=== PATIENT | female | born 1995 | race Caucasian/White ===

== ENCOUNTER 2016-07-11 16:13 | Emergency (ER) | payer OTHER ==
[2016-07-11 16:18] VITALS: BP 122/66
[2016-07-11 16:52] LABS: BILIRUBIN,URINE NEGATIVE (NEGATIVE)
[2016-07-11 16:56] LABS: HCG UR QUAL NEGATIVE; UA w/ MICROSCOPIC CHARGE YES
--- NOTE | 2016-07-11 16:59 | ED Physician Documentation ---
PD HPI FEMALE - Stated complaint Stated Complaint: FEMALE - Chief complaint Chief Complaint: General - History obtained from History obtained from: Patient - History of Present Illness Timing - onset: How many days ago (5) Timing - duration: Days (5) Timing - details: Gradual onset, Still present, Waxing and waning Associated symptoms: Dysuria, Urinary frequency, Other (vaginal itching) Contributing factors: No: Similar symptoms before: Diagnosis (UTI and yeast infection) Recently seen: Not recently seen - Additional information Additional information: 20 y/o female with urinary symptoms for the past 5 days feels itching as well. Review of Systems Constitutional: denies: Fever, Chills, Myalgias Eyes: denies: Decreased vision Ears: denies: Ear pain Nose: denies: Congestion Throat: denies: Sore throat Cardiac: denies: Chest pain / pressure, Palpitations Respiratory: denies: Dyspnea, Cough GI: reports: Nausea. denies: Abdominal Pain, Vomiting, Constipation, Diarrhea : reports: Dysuria, Frequency Skin: denies: Rash Musculoskeletal: denies: Neck pain, Back pain, Extremity pain Neurologic: denies: Generalized weakness, Focal weakness, Numbness PD PAST MEDICAL HISTORY - Present Medications Home Medications: Ambulatory Orders Medication Instructions Recorded Confirmed Sulfamethoxazole/Trimethoprim 1 each PO BID #6 tablet 07/11/16 [Sulfamethoxazole-Tmp Ds Tablet] - Allergies Allergies/Adverse Reactions: Allergies Allergy/AdvReac Type Severity Reaction Status Date / Time No Known Drug Allergies Allergy Verified 07/11/16 16:17 PD ED PE NORMAL - Vitals Vital signs reviewed: Yes (normal ) - General General: Alert and oriented X 3, No acute distress, Well developed/nourished - HEENT HEENT: Atraumatic, PERRL, EOMI - Respiratory Respiratory: No respiratory distress - Back Back: No CVA TTP, No spinal TTP - Derm Derm: Normal color, Warm and dry, No rash - Extremities Extremities: No deformity, No edema - Neuro Neuro: No motor deficit, No sensory deficit - Psych Psych: Normal mood, Normal affect Results - Vitals Vitals: Vital Signs - 24 hr 07/11/16 16:16 Temperature 37.2 C Heart Rate 71 Respiratory 20 Rate Blood Pressure 122/66 O2 Saturation 100 Oxygen O2 Source Room air - Labs Labs: Laboratory Tests 07/11/16 16:38 Urine Color YELLOW Urine Clarity CLEAR Urine pH 6.0 Ur Specific [place] 1.010 Urine Protein NEGATIVE Urine Glucose (UA) NEGATIVE Urine Ketones NEGATIVE Urine Occult Blood TRACE-INTA Urine Nitrite NEGATIVE Urine Bilirubin NEGATIVE Urine Urobilinogen 0.2 (NORMAL) Ur Leukocyte Esterase TRACE H Urine RBC 6-10 H Urine WBC 4-5 Ur Squamous Epith Cells NONE SEEN Amorphous Sediment Rare Urine Bacteria None Seen Ur Microscopic Review INDICATED Urine Culture Comments INDICATED Urine HCG, Qual NEGATIVE PD MEDICAL DECISION MAKING - ED course Complexity details: considered differential, d/w patient, d/w family ED course: 20 y/o female with urinary symptoms and itching has an equivocal urine specimen. I have instructed her to treat for yeast and we will provide treatment for UTI. Departure - Departure Disposition: Home, Self Care Clinical Impression: Urinary tract infection Qualifiers: Urinary tract infection type: acute cystitis Hematuria presence: with hematuria Qualified Code(s): N30.01 - Acute cystitis with hematuria Instructions: ED UTI Cystitis Female Follow-Up: [facility] [Provider Group] Prescriptions: Sulfamethoxazole/Trimethoprim [Sulfamethoxazole-Tmp Ds Tablet] 1 each PO BID #6 tablet
[2016-07-11 17:24] LABS: UR CULTURE IF IND INDICATED
== END 2016-07-11 17:39 | disposition home or self-care (01) ==
LOC: ED 16:13
DX: N30.01 Acute cystitis with hematuria (principal)
CPT/HCPCS: 81001; 81003; 81025; 87086; 99283

== ENCOUNTER 2016-09-11 16:33 | Emergency (ER) | payer OTHER ==
[2016-09-11] MEDS ORDERED: BENZOCAINE/MENTHOL LOZENGE MM STA (16:52)
[2016-09-11] MEDS ORDERED: DEXAMETHASONE 10 MG/ML VIAL PO STA (16:52)
[2016-09-11] MEDS ORDERED: CHERRY SYRUP 10 ML UDC PO ONE (16:56)
[2016-09-11] MEDS ORDERED: BENZOCAINE/MENTHOL LOZENGE MM ONE (16:56)
[2016-09-11] MEDS ORDERED: DEXAMETHASONE 10 MG/ML VIAL ONE (16:57)
== END 2016-09-11 18:02 | disposition home or self-care (01) ==
DX: J02.9 Acute pharyngitis, unspecified (principal); F17.200 Nicotine dependence, unspecified, uncomplicated
CPT/HCPCS: 86308; 87070; 87430; 99283; A9270

== ENCOUNTER 2017-02-02 19:08 | Emergency (ER) | payer OTHER ==
[2017-02-02 19:51] LABS: RAPID STREP SCREEN REAGENT QC YELLOW (YELLOW)
--- NOTE | 2017-02-02 22:11 | ED Physician Documentation ---
History of Present Illness - Stated complaint Stated Complaint: SORE THROAT - Chief complaint Chief Complaint: Heent - Additonal information Additional information: hx from pt 21 y/o f hx strep throat sore throat DAVIDSON body aches X 24 hr no cough NVD Review of Systems Constitutional: reports: Chills, Myalgias Throat: reports: Sore throat Respiratory: denies: Cough GI: denies: Abdominal Pain : denies: Now EGA (denies) Skin: denies: Rash PD PAST MEDICAL HISTORY - Present Medications Home Medications: Ambulatory Orders Medication Instructions Recorded Confirmed Penicillin Vk 500 mg PO Q8H 10 Days 02/02/17 - Allergies Allergies/Adverse Reactions: Allergies Allergy/AdvReac Type Severity Reaction Status Date / Time No Known Drug Allergies Allergy Verified 02/02/17 19:23 - Social History Does the pt smoke?: Yes Smoking Status: Current every day smoker - Immunizations Immunizations are current?: Yes PD ED PE NORMAL - Vitals Vital signs reviewed: Yes - HEENT HEENT: Ears normal, Moist mucous membranes. No: Pharynx benign (enlarged tonsils with exudate bilaterally) - Neck Neck: No: No adenopathy (anterior no posterior) - Cardiac Cardiac: RRR - Respiratory Respiratory: No respiratory distress, Clear bilaterally - Abdomen Abdomen: Soft, Non tender, No organomegaly - Derm Derm: Normal color - Neuro Neuro: Alert and oriented X 3 Results - Vitals Vitals: Vital Signs - 24 hr 02/02/17 02/02/17 19:21 21:12 Temperature 37.2 C 37.4 C Heart Rate 109 H 95 Respiratory 18 18 Rate Blood Pressure 127/74 114/60 O2 Saturation 100 98 Oxygen O2 Source Room air - Labs Labs: Laboratory Tests 02/02/17 19:23 Group A Strep Rapid Negative PD MEDICAL DECISION MAKING - ED course ED course: hx strep and meets all centor criteria Departure - Departure Disposition: 01 Home, Self Care Clinical Impression: Strep pharyngitis Condition: Good Instructions: ED Strep Pharyngitis Poss Prescriptions: Penicillin Vk 500 mg PO Q8H 10 Days Forms: Activity restrictions
[2017-02-02] MEDS ORDERED: PENICILLIN VK 250 MG TABLET PO ONE (22:23)
[2017-02-02] MEDS: PENICILLIN VK 250 MG TABLET PO STA (22:24)
[2017-02-02 22:26] VITALS: BP 115/63
== END 2017-02-02 22:25 | disposition home or self-care (01) ==
LOC: ED 19:08
DX: J02.0 Streptococcal pharyngitis (principal); F17.200 Nicotine dependence, unspecified, uncomplicated
CPT/HCPCS: 87070; 87430; 99283; A9270

== ENCOUNTER 2017-02-10 18:27 | Emergency (ER) | payer OTHER ==
[2017-02-10 18:43] VITALS: BP 137/88
== END 2017-02-10 19:31 | disposition left against medical advice (07) ==
LOC: ED 18:27
DX: Z53.21 Procedure and treatment not carried out due to patient leaving prior to being seen by health care provider (principal)

== ENCOUNTER 2018-08-11 20:54 | Emergency (ER) | payer OTHER ==
[2018-08-11] MEDS ORDERED: IBUPROFEN 800 MG TABLET PO STA (21:05)
--- NOTE | 2018-08-11 21:06 | ED Physician Documentation ---
PD HPI URI - Stated complaint Stated Complaint: SWOLLEN THROAT/BODY ACHES - Chief complaint Chief Complaint: Heent - History obtained from History obtained from: Patient - History of Present Illness Timing - onset: Yesterday (Sore throat with body aches and low back pain as well as fever and swollen lymph nodes since yesterday. No possibility of .) Review of Systems Constitutional: reports: Fever, Chills, Myalgias, Fatigue Nose: denies: Rhinorrhea / runny nose Throat: reports: Sore throat PD PAST MEDICAL HISTORY - Present Medications Home Medications: Ambulatory Orders Medication Instructions Recorded Confirmed Penicillin Vk 500 mg PO Q8H 10 Days tablet 02/02/17 Penicillin V Potassium 500 mg PO Q6HR #40 tablet 08/11/18 - Allergies Allergies/Adverse Reactions: Allergies Allergy/AdvReac Type Severity Reaction Status Date / Time No Known Drug Allergies Allergy Verified 02/10/17 18:43 - Social History Does the pt smoke?: Yes Smoking Status: Current every day smoker - Immunizations Immunizations are current?: Yes PD ED PE NORMAL - Vitals Vital signs reviewed: Yes - General General: Alert and oriented X 3, No acute distress - HEENT HEENT: Ears normal, Other (Bilateral exudative tonsillitis with moderate anterior cervical adenopathy) - Neck Neck: Supple, no meningeal sign - Derm Derm: No rash - Neuro Neuro: Alert and oriented X 3, Normal speech Results - Vitals Vitals: Vital Signs - 24 hr 08/11/18 20:56 Temperature 37.5 C Heart Rate 89 Respiratory 18 Rate Blood Pressure 117/60 O2 Saturation 100 Oxygen O2 Source Room air - Labs Labs: Laboratory Tests 08/11/18 08/11/18 21:07 21:07 Influenza A (Rapid) Negative Influenza B (Rapid) Negative Group A Strep Rapid Negative Departure - Departure Disposition: Home, Self Care Clinical Impression: Exudative pharyngitis Condition: Good Record reviewed to determine appropriate education?: Yes Instructions: ED Strep Pharyngitis Poss Prescriptions: Penicillin V Potassium 500 mg PO Q6HR #40 tablet Comments: Return for new or worsening symptoms. Follow-up with your doctor on Wednesday if not better. Ibuprofen as needed for pain. Forms: Activity restrictions
[2018-08-11 21:12] VITALS: BP 117/60
[2018-08-11] MEDS ORDERED: PENICILLIN VK 250 MG TABLET PO STA (21:39)
== END 2018-08-11 21:58 | disposition home or self-care (01) ==
LOC: ED 20:54
DX: J02.9 Acute pharyngitis, unspecified (principal); F17.200 Nicotine dependence, unspecified, uncomplicated
CPT/HCPCS: 87070; 87275; 87276; 87430; 99283; A9270

== ENCOUNTER 2018-12-24 13:41 | Emergency (ER) | payer OTHER ==
[2018-12-24 13:49] VITALS: BP 131/67
--- NOTE | 2018-12-24 14:08 | ED Physician Documentation ---
History of Present Illness - Stated complaint Stated Complaint: R EYE IRRITATION - Chief complaint Chief Complaint: General - History obtained from History obtained from: Patient - History of Present Illness Timing: Yesterday (Right lower eyelid swelling and inflammation since yesterday with normal vision. Does not wear contacts.) Review of Systems Constitutional: reports: Reviewed and negative Ears: denies: Loss of hearing, Ear pain Nose: denies: Rhinorrhea / runny nose, Congestion PD PAST MEDICAL HISTORY - Present Medications Home Medications: Ambulatory Orders Medication Instructions Recorded Confirmed Penicillin Vk 500 mg PO Q8H 10 Days tablet 02/02/17 Penicillin V Potassium 500 mg PO Q6HR #40 tablet 08/11/18 Tobramycin/Dexamethasone [Tobradex 1 drops RIGHTEYE QID 7 Days #1 12/24/18 Eye Drops] drops.susp - Allergies Allergies/Adverse Reactions: Allergies Allergy/AdvReac Type Severity Reaction Status Date / Time No Known Drug Allergies Allergy Verified 02/10/17 18:43 - Social History Does the pt smoke?: Yes Smoking Status: Current every day smoker - Immunizations Immunizations are current?: Yes PD ED PE NORMAL - Vitals Vital signs reviewed: Yes - General General: Alert and oriented X 3, No acute distress - HEENT HEENT: PERRL, EOMI, Other (There is a small stye medially on that of the right eye, no conjunctivitis) - Neck Neck: Supple, no meningeal sign, No bony TTP Results - Vitals Vitals: Vital Signs - 24 hr 12/24/18 13:46 Temperature 36.6 C Heart Rate 64 Respiratory 16 Rate Blood Pressure 131/67 H O2 Saturation 98 Oxygen O2 Source Room air Departure - Departure Disposition: Home, Self Care Clinical Impression: Stye Qualifiers: Laterality: right Eyelid: lower Qualified Code(s): H00.012 - Hordeolum externum right lower eyelid Condition: Good Record reviewed to determine appropriate education?: Yes Health Concerns: stye R eye Plan of Treatment: antiotic drops Care Goals: improvement Assessment: as above Instructions: ED [place] Follow-Up: Marcos Coleman MD [Provider Admit Priv/Credential] - Within 1 week Prescriptions: Tobramycin/Dexamethasone [Tobradex Eye Drops] 1 drops RIGHTEYE QID 7 Days #1 drops.susp
== END 2018-12-24 14:15 | disposition home or self-care (01) ==
LOC: ED 13:41
DX: H00.012 Hordeolum externum right lower eyelid (principal); F17.200 Nicotine dependence, unspecified, uncomplicated
CPT/HCPCS: 99283

== ENCOUNTER 2019-02-09 08:31 | Emergency (ER) | payer OTHER ==
[2019-02-09 08:40] VITALS: BP 131/67
[2019-02-09] MEDS ORDERED: KETOROLAC 60 MG/2 ML VIAL IM STA (08:56)
--- NOTE | 2019-02-09 09:02 | ED Physician Documentation ---
PD HPI BACK PAIN - Stated complaint Stated Complaint: BACK PX - Chief complaint Chief Complaint: Back Pain - History obtained from History obtained from: Patient - History of Present Illness Timing - onset: How many days ago (2) Timing - duration: Days (2) Timing - details: Gradual onset Pain level max: 8 Pain level now: 8 Location: Upper, Right Quality: Pain, Spasm Associated symptoms: No: Fever, Weakness, Numbness, Incontinent of urine, Unable to urinate, Hematuria, Incontinent of stool Improves with: Rest Worsened by: Movement Contributing factors: Lifting (Patient states that she was lifting and moving stuff in storage, pain started the next day) Recently seen: Not recently seen Review of Systems Constitutional: denies: Fever, Chills Throat: denies: Sore throat Respiratory: denies: Cough GI: denies: Nausea, Vomiting, Diarrhea : denies: Dysuria, Unable to Void, Incontinent, Now EGA Skin: denies: Rash Musculoskeletal: denies: Neck pain Neurologic: denies: Headache PD PAST MEDICAL HISTORY - Past Medical History Past Medical History: No - Present Medications Home Medications: Ambulatory Orders Medication Instructions Recorded Confirmed Cyclobenzaprine [Flexeril] 10 mg PO TID PRN #20 tablet 02/09/19 Dextroamphetamine/Amphetamine 1 tab DAILY 02/09/19 02/09/19 [Adderall 15 mg Tablet] Meloxicam [Mobic] 15 mg PO DAILY PRN #20 tablet 02/09/19 - Allergies Allergies/Adverse Reactions: Allergies Allergy/AdvReac Type Severity Reaction Status Date / Time No Known Drug Allergies Allergy Verified 02/09/19 08:40 - Social History Does the pt smoke?: Yes Smoking Status: Current every day smoker - Immunizations Immunizations are current?: Yes PD ED PE NORMAL - Vitals Vital signs reviewed: Yes - General General: Alert and oriented X 3, No acute distress - HEENT HEENT: Moist mucous membranes - Neck Neck: Supple, no meningeal sign - Cardiac Cardiac: RRR, Strong equal pulses - Respiratory Respiratory: No respiratory distress, Clear bilaterally - Abdomen Abdomen: Soft, Non tender, Non distended - Back Back: Other (No midline tenderness to palpation over the cervical, thoracic or lumbar spine. Tender to palpation paraspinal upper thoracic. Muscle spasm present. Neurovascularly intact. Normal examination of the shoulder and neck.) - Derm Derm: Warm and dry - Neuro Neuro: Alert and oriented X 3 - Psych Psych: Normal mood, Normal affect Results - Vitals Vitals: Vital Signs - 24 hr 02/09/19 08:35 Temperature 36.3 C L Heart Rate 75 Respiratory 16 Rate Blood Pressure 131/67 H O2 Saturation 98 Oxygen O2 Source Room air PD MEDICAL DECISION MAKING - ED course Complexity details: considered differential (No cauda equina, no spinal epidural abscess, no fracture, no aortic dissection or evidence of aneursym rupture), d/w patient ED course: 23-year-old female presents to the emergency department with a right upper thoracic strain. No evidence of bony injury. No evidence of spinal cord compression. No cauda equina or epidural abscess. No fevers. Will place on muscle relaxants and anti-inflammatories and follow-up with her doctor. Given Toradol here. Patient counseled regarding signs and symptoms for which I believe and urgent re-evaluation would be necessary. Patient with good understanding of and agreement to plan and is comfortable going home at this time This document was made in part using voice recognition software. While efforts are made to proofread this document, sound alike and grammatical errors may occur. Departure - Departure Disposition: 01 Home, Self Care Clinical Impression: Upper back strain Qualifiers: Encounter type: initial encounter Qualified Code(s): S29.012A - Strain of muscle and tendon of back wall of thorax, initial encounter Condition: Good Instructions: ED Spasm Back No Trauma Follow-Up: your,doctor in 1 week [Other] Prescriptions: Cyclobenzaprine [Flexeril] 10 mg PO TID PRN #20 tablet PRN Reason: Spasms Meloxicam [Mobic] 15 mg PO DAILY PRN #20 tablet PRN Reason: pain Comments: Return if you worsen. Continue gentle stretching. Ice and/or heat may help as well. Return if you worsen. Do not drive or operate heavy machinery while taking the Flexeril. This may take 1 to 2 weeks to heal. Forms: Activity restrictions
== END 2019-02-09 09:25 | disposition home or self-care (01) ==
LOC: ED 08:31
DX: S29.012A Strain of muscle and tendon of back wall of thorax, initial encounter (principal); X50.0XXA Overexertion from strenuous movement or load, initial encounter; F17.200 Nicotine dependence, unspecified, uncomplicated
CPT/HCPCS: 96372; 99283; 99284

== ENCOUNTER 2019-03-02 22:42 | Emergency (ER) | payer OTHER ==
[2019-03-02 23:04] LABS: BILIRUBIN,URINE NEGATIVE (NEGATIVE); GLUCOSE, URINE (UA) NEGATIVE (NEGATIVE); KETONES,URINE (UA) NEGATIVE (NEGATIVE); LEUKOCYTE ESTERASE, URINE NEGATIVE (NEGATIVE); NITRITE,URINE NEGATIVE (NEGATIVE); OCCULT BLOOD,URINE NEGATIVE (NEGATIVE); PROTEIN,URINE NEGATIVE (NEGATIVE); UROBILINOGEN,URINE 0.2 (NORMAL) E.U./dL (NORMAL)
[2019-03-02 23:20] LABS: CLARITY,URINE CLEAR (CLEAR)
[2019-03-02 23:21] LABS: HCG UR QUAL NEGATIVE
--- NOTE | 2019-03-02 23:28 | ED Physician Documentation ---
PD HPI FEMALE - Stated complaint Stated Complaint: FEM - Chief complaint Chief Complaint: UTI - History obtained from History obtained from: Patient - History of Present Illness Timing - onset: How many days ago (2) Timing - duration: Days (2) Timing - details: Abrupt onset, Still present Associated symptoms: Pelvic pain, Vaginal discharge. No: Fever, Genital sore/lesion, Dysuria Contributing factors: Sexually active (Newly sexually active with a new partner with intercourse just a week ago.). No: Similar symptoms before: Has not had sx before Recently seen: Not recently seen Review of Systems Constitutional: denies: Fever, Chills, Myalgias GI: reports: Abdominal Pain. denies: Abdominal Swelling, Nausea, Vomiting, Diarrhea : reports: Discharge. denies: Frequency, Vaginal bleeding Musculoskeletal: denies: Neck pain, Back pain PD PAST MEDICAL HISTORY - Past Medical History Past Medical History: No - Past Surgical History Past Surgical History: No - Present Medications Home Medications: Ambulatory Orders Medication Instructions Recorded Confirmed Dextroamphetamine/Amphetamine 1 tab DAILY 02/09/19 02/09/19 [Adderall 15 mg Tablet] Tretinoin Microspheres [Retin-A 50 gm TP DAILY 03/02/19 03/02/19 Micro Pump] - Allergies Allergies/Adverse Reactions: Allergies Allergy/AdvReac Type Severity Reaction Status Date / Time No Known Drug Allergies Allergy Verified 03/02/19 22:49 - Social History Does the pt smoke?: Yes Smoking Status: Current every day smoker - Immunizations Immunizations are current?: Yes PD ED PE NORMAL - Vitals Vital signs reviewed: Yes - General General: Alert and oriented X 3, Well developed/nourished - Abdomen Abdomen: Soft, Non tender - Female Female : Cupola Charger present, Other (External genitalia is normal. The vaginal vault shows a copious amount of whitish-yellow purulent material in the vault and from the endocervix with some cervical tenderness.) - Rectal Rectal: Deferred - Back Back: No CVA TTP - Derm Derm: Normal color, Warm and dry Results - Vitals Vitals: Vital Signs - 24 hr 03/02/19 03/03/19 22:46 00:41 Temperature 36.2 C L 36.7 C Heart Rate 96 69 Respiratory 18 15 Rate Blood Pressure 138/90 H 126/81 H O2 Saturation 100 100 Oxygen O2 Source Room air - Labs Labs: Laboratory Tests 03/02/19 03/02/19 03/02/19 22:55 22:55 23:55 Urine Color YELLOW Urine Clarity CLEAR Urine pH 6.0 Ur Specific [place] <=1.005 <1.005 Urine Protein NEGATIVE Urine Glucose (UA) NEGATIVE Urine Ketones NEGATIVE Urine Occult Blood NEGATIVE Urine Nitrite NEGATIVE Urine Bilirubin NEGATIVE Urine Urobilinogen 0.2 (NORMAL) Ur Leukocyte Esterase NEGATIVE Ur Microscopic Review NOT INDICATED Urine Culture Comments NOT INDICATED Urine HCG, Qual NEGATIVE C. glabrata (PCR) NEGATIVE C. krusei (PCR) NEGATIVE [place] species DNA POSITIVE A T. vaginalis (PCR) NEGATIVE Bact Vaginosis (PCR) NEGATIVE PD MEDICAL DECISION MAKING - ED course Complexity details: considered differential (A copious amount of yellow-white purulent material in the vaginal vault and from the endocervix. It appears consistent with likely gonorrhea. We will treat her for STDs. Presumptively.), d/w patient Departure - Departure Disposition: 01 Home, Self Care Clinical Impression: Vaginitis Qualifiers: Chronicity: acute Qualified Code(s): N76.0 - Acute vaginitis Condition: Stable Record reviewed to determine appropriate education?: Yes Instructions: ED Chlamydia GC Poss Culture Pend Follow-Up: [facility]aird [Provider Group] Comments: Your vaginal exam is suspicious for an STD and we gave you antibiotics for that tonight. We will call with the culture results to confirm and that likely will result tomorrow or the following day. Follow-up with your primary care in 1 to 2 weeks to ensure the infection is been fully cleared. Recheck if your symptoms have not improved over the next several days. Tylenol or ibuprofen if needed for pains. Discharge Date/Time: 03/03/19 00:46
[2019-03-03] MEDS ORDERED: LIDOCAINE 1% 2 ML VIAL MC ONE (00:06)
[2019-03-03] MEDS ORDERED: AZITHROMYCIN 250 MG TABLET PO STA (00:06)
[2019-03-03] MEDS ORDERED: cefTRIAXone 500 MG VIAL IM STA (00:06)
[2019-03-03] MEDS ORDERED: ONDANSETRON ODT 4 MG TABLET TL STA (00:06)
[2019-03-03] MEDS ORDERED: ACETAMINOPHEN 325 MG TABLET PO STA (00:38)
[2019-03-03 00:42] VITALS: BP 126/81
[2019-03-03 03:29] LABS: CANDIDA GROUP DNA POSITIVE (NEGATIVE); CANDIDA KRUSEI DNA NEGATIVE (NEGATIVE); TRICHOMONAS VAGINALIS DNA NEGATIVE (NEGATIVE)
[2019-03-03 22:17] LABS: TRICHOMONAS VAGINALIS DNA NEGATIVE (NEGATIVE)
== END 2019-03-03 00:46 | disposition home or self-care (01) ==
LOC: ED 22:42
DX: N76.0 Acute vaginitis (principal); F17.200 Nicotine dependence, unspecified, uncomplicated
CPT/HCPCS: 81003; 81025; 87481; 87491; 87591; 87661; 87801; 96372; 99282; 99283; A9270; Q0162; 81001; 87086